=== PATIENT | male | born 1955 | race Caucasian/White ===

== ENCOUNTER 2016-10-11 19:23 | Emergency (ER) | payer OTHER ==
[~2016-10-11] VITALS: Ht 175.3 cm; Wt 77.7 kg
[2016-10-11 19:31] VITALS: BP 164/99; PULSE 80; RESP 16; O2SAT 100
[2016-10-11 20:18] LABS: BASOPHILS % (AUTO) 0.4 % (0-3)
[2016-10-11 20:37] LABS: Magnesium 2.4 mg/dL (1.6-2.6)
[2016-10-11 20:40] LABS: EOSINOPHILS % (AUTO) 2.2 % (0-5); MONOCYTES % (AUTO) 7.7 % (4-12); Mean Corpuscular Volume 81.7 fL (81-100); NEUTROPHILS % (AUTO) 72.1 % (40-74); Platelet Count 185 bil/L (150-400)
--- NOTE | 2016-10-11 21:10 | ED.REPORT ---
HPI-GI Bleed Date of Service Oct 11, 2016 ED Provider: Wilber Gómez MD A 60 year old male with a history of anxiety presents to the ED complaining of intermittent bloody stools that began approx. 6 months ago. Patient has been seen at [facility] for his symptoms and was told that he may be experiencing bacterial gastritis. During the initial episode, he reports abdominal pain, "heartburn", fatigue, flatulence and diarrhea. Patient reports one episode of white mucus around his stool earlier this week. Associated symptoms include fatigue, decreased appetite, and has been feeling "very anxious " lately. He also reports weight loss (5-6lbs) over the past 6 days. Patient has a colonoscopy scheduled for Thursday. He denies any diarrhea today. Nursing Notes Stated Complaint: BLOOD IN STOOLS Chief Complaint: Male Abdominal Pain Nursing Notes Reviewed: Yes Allergies: Coded Allergies: No Known Allergies (Unverified , 10/11/16) General Time Seen by Provider: 21:11 Chief Complaint Chief Complaint: Stool blood streaked Hx Obtained From: Patient Arrived By: Walk-in Onset Occurred: More than a week ago... (6 months) Symptom Duration: Since onset Progression Since Onset: Intermittent Location: : Abdomen lower Quality: Painful Radiation: : Does not radiate Severity: Current: No pain currently Severity: Maximum: Moderate Associated with: Reports: Abdominal pain, Chest pain, Diarrhea Pertinent Negative: Pt denies other symptoms Recent Healthcare: No recent hospitalization, Recent doctor visit Risk-GI Bleed Bleeding Risk Stratification RF Statements: Risk factors reviewed Past Medical History Past Medical History Anxiety Hypertension Past Surgical History Colonoscopy Smoking History Unknown if Ever Smoker Social History Other Social History: Good social support, , Lives in custodial, Local resident Ambulatory Status Independent Review of Systems decreased appetite Constitutional: Reports: Recent wt loss (5-6 lbs in the past 6 days ), Denies: Chills, Fever Respiratory: Denies: Shortness of breath Cardiovascular: Reports: Chest pain (During one episode ) GI: Reports: Abdominal pain (During the initial episode of pain ), Bloody/ tarry stool, Constipation, Diarrhea, Mucousy stool Neurologic: Denies: Change LOC Complete sys rev & neg: except as marked. Psychiatric: Reports: Anxiety Physical Exam Initial Vital Signs Vital Signs (First) Date Time Temp Pulse Resp B/P Pulse Ox O2 Delivery O2 Flow Rate FiO2 10/11/16 19:31 36.4 80 16 164/99 100 Room Air Initial VS: Reviewed, Vital signs abnormal Head / Eyes: Atraumatic, Normocephalic, PERRL Extremities: Vascular intact, Neuro intact, No swelling, No tenderness Skin: Warm, Dry, No cyanosis Neurologic: Alert, Oriented, Nonfocal Psychiatric: Mood/affect normal, Behavior normal, Normal thought content General/Constitutional: Awake, Alert Behavior: Positive: Anxious Respiratory / Chest: Atraumatic, Breath sounds NL, Breath sounds = bilat, No respiratory distress Cardiovascular: Heart rate NL, Regular rhythm, Heart sounds NL Abdomen: Atraumatic, Soft, Non-tender RECTUM: Not indicated Interpretation & Diagnostics Lab Results Interpretation Result Diagram: 10/11/16200410/11/162004 Test 10/11/16 20:04 10/11/16 20:05 Hold Urine Received (Received) White Blood Count 5.6th/mm3 (3.8-10.1) Red Blood Count 5.67mil/mm3 (4.40-5.80) Hemoglobin 17.0g/dL (13.8-17.2) Hematocrit 46.3% (41.0-50.0) Mean Corpuscular Volume 81.7fL (81-100) Mean Corpuscular Hemoglobin 30.0pg (27.0-35.0) Mean Corpuscular Hemoglobin Concent 36.7% (32.0-37.0) Red Cell Distribution Width 12.4% (12.3-15.4) Platelet Count 185bil/L (150-400) Neutrophils (%) (Auto) 72.1% (40-74) Lymphocytes (%) (Auto) 17.4% (14-46) Monocytes (%) (Auto) 7.7% (4-12) Eosinophils (%) (Auto) 2.2% (0-5) Basophils (%) (Auto) 0.4% (0-3) Sodium Level 137mEq/L (134-144) Potassium Level 4.2mEq/L (3.5-5.2) Chloride Level 99mEq/L (97-108) Carbon Dioxide Level 24mmol/L (18-29) Blood Urea Nitrogen 11mg/dL (6-24) Creatinine 0.80mg/dL (0.76-1.27) Estimat Glomerular Filtration Rate 105mL/min (>59) Glucose Level 169mg/dL (60-99) Calcium Level 9.8mg/dL (8.5-10.1) Magnesium Level 2.4mg/dL (1.6-2.6) Total Bilirubin 1.1mg/dL (0.0-1.2) Aspartate Amino Transf (AST/SGOT) 27U/L (0-50) Alanine Aminotransferase (ALT/SGPT) 20U/L (0-44) Alkaline Phosphatase 60U/L (25-160) Total Protein 7.8g/dL (6.4-8.4) Albumin 4.9g/dL (3.4-5.0) Hold Reis Top Tube Received (Received) Lab values outside NL range: no clinical significance. Lab Results Interpretation: Elevated nonfasting blood glucose. No anemia Re-Eval/Medical Decision Med Decision/Clinical Course 60-year-old male who has had several months now of intermittent blood in his stool. There is sometimes mucus and diarrhea but not consistently. He is in the process of being evaluated and has a colonoscopy scheduled in 2 days. He is very anxious about this and wants to make sure that he is not anemic. Laboratory is normal. Stool antigen testing is ordered but he is unable to give us a stool sample at this time. He will continue his bowel prep and get his colonoscopy and follow-up with his GI doctor concerning this matter. Re-Evaluation/Progress : Time of Eval: 21:32 Patient Status: Condition improved Re-Evaluation/Progress Note: Patient is rechecked. He is informed of his lab results. All of the patient's questions about his blood work are adressed. Patient is reassured that he is not anemic. He understands and agrees with the treatment plan to discharge. Counseled Regarding: Diagnosis, Lab results, Need for follow-up, When/why to return to ED Discharge & Departure Impression: Primary Impression: Rectal bleeding Disposition: Home Discharge Condition All VS Reviewed: Yes Condition: Improved Patient Instructions: Gastrointestinal Bleeding (ED) Additional Instructions: Your labs today are all normal with the exception of mildly elevated nonfasting blood sugar. Collect a stool sample and return it to the lab for PCR testing. Continue your bowel prep and gets her colonoscopy as scheduled. There is no evidence right now of anemia, liver or kidney disease, or other serious situation with the lab testing. Referrals: Benoit Schumacher DO (PCP) Pelon Attestation Portions of this note were transcribed by Jamison Man. I, Dr. Gómez personally performed the history, physical exam and medical decision-making; I reviewed and confirmed the accuracy of the information in the transcribed note. Signed by: Pelon Jacinto, 10/11/16 0080. copies to: Benoit Schumacher Howard L MD Oct 11, 2016 21:10 JAMISON MAN Oct 11, 2016 21:18
[2016-10-11 21:41] VITALS: BP 160/95; PULSE 67; O2SAT 98
[2016-10-11 22:08] VITALS: BP 160/95; PULSE 67; RESP 16; O2SAT 98
== END 2016-10-11 22:09 | disposition home or self-care (01) ==
LOC: SED 19:23
DX: K62.5 Hemorrhage of anus and rectum (principal); R53.83 Other fatigue; R63.0 Anorexia; F41.9 Anxiety disorder, unspecified; I10 Essential (primary) hypertension

== ENCOUNTER 2016-11-06 12:35 | Emergency (ER) | payer OTHER ==
[~2016-11-06] VITALS: Ht 175.3 cm; Wt 79.1 kg
--- NOTE | 2016-11-06 12:38 | ED.REPORT ---
HPI-Dyspnea / Wheezing Date of Service Nov 06, 2016 ED Provider: Dr. Soham Varma The patient is a 60 year old male with history of hypertension and anxiety, who presents to the emergency department complaining of shortness of breath that began yesterday. He was seen by medics yesterday but decided to not go to the hospital at that time. His breathing became more severe this morning. Around September 20 the patient started feeling unwell. The patient initially noticed tingling in his leg and a few days later his legs "gave out" from under him. The leg weakness has continued since onset. He lost 6 pounds in about 1 week. He has also noticed cramping in his left calf and fasciculations. His symptoms do not improve when his anxiety does. He is concerned he has ALS and has an appointment with a neurologist at [facility] next week. He has no known family history of ALS. He denies fever, chills, cough, nasal congestion, abdominal pain, nausea, vomiting or diarrhea. Nursing Notes Stated Complaint: SOB Nursing Notes Reviewed: Yes Allergies: Coded Allergies: No Known Allergies (Unverified , 10/11/16) General Time Seen by MD: 12:37 Chief Complaint Shortness of breath Hx Obtained From: Patient, Spouse Arrived By: Walk-in Sudden in Onset?: No Onset Occurred: Yesterday Symptom Duration: Since onset Location: : None Severity: Current: No pain currently Severity: Maximum: No pain Recent Healthcare: No recent hospitalization, Recent doctor visit, Prior workup Similar Sx Previous: Yes Risk Factors Well's Criteria for PE Well's PE Score: 0-2 pts (low risk 3.6%) Well's Criteria for DVT Well's DVT Score: 0 pts (low risk 5%) Past Medical History Past Medical History Anxiety Hypertension Lumbar spine injury Past Surgical History Colonoscopy with polyp removal Lumbar surgery Family History Noncontributory Smoking History Never Smoker Social History Other Social History: Good social support, , Local resident Ambulatory Status Independent Review of Systems Review of Systems Note: +fasciculations Constitutional: Reports: Recent wt loss, Denies: Chills, Fever Ears / Nose / Throat: Denies: Nasal congestion Respiratory: Reports: Shortness of breath, Denies: Non-productive cough Musculoskeletal: Reports: Extremity pain (calf) Complete sys rev & neg: except as marked. GI: Denies: Abdominal pain, Diarrhea, Nausea, Vomiting Neurologic: Reports: Focal weakness, Numbness (tingling), Problem walking Psychiatric: Reports: Anxiety Physical Exam Initial Vital Signs Vital Signs (First) Date Time Temp Pulse Resp B/P Pulse Ox O2 Delivery O2 Flow Rate FiO2 11/06/16 12:40 36.7 71 12 135/91 98 Room Air Initial VS: Reviewed Head / Eyes: Atraumatic, Normocephalic, PERRL ENT: Mucous membranes moist, Conjunctiva normal, No scleral icterus Abdomen / GI: Soft, Non-tender, No guarding, No rebound, No distention Lymphatic: No lymphadenopathy Extremities: Vascular intact, No swelling Skin: Warm, Dry, No cyanosis Psychiatric: Mood/affect normal, Behavior normal, Normal thought content General/Constitutional: Awake, Alert Neck: Atraumatic, Supple, No meningismus, Full range of motion, No swelling, Non-tender, No masses Respiratory / Chest: Atraumatic, Breath sounds NL, Breath sounds = bilat, No respiratory distress, No rales, No rhonchi, No wheezing, No retractions, No stridor Cardiovascular: Heart rate NL, Regular rhythm, Heart sounds NL, No gallop, No murmurs, No rubs, Peripheral circulation NL Lower Extremity / Pelvis / MS: Neurologic intact, Vascular intact, No edema Neurologic: Oriented X3, Speech NL, No motor deficits, No sensory deficits, Cerebellar NL, Memory NL, Gait NL No fasciculations seen on exam. Reflexes: knees are 3+ symmetrically, ankles 1+ symmetrically, biceps tendon 1+ symmetrically. Interpretation & Diagnostics Lab Results Interpretation Result Diagram: 11/06/16 1325 11/06/16 1325 Test 11/06/16 13:25 White Blood Count 6.7th/mm3 (3.8-10.1) Red Blood Count 5.39mil/mm3 (4.40-5.80) Hemoglobin 16.4g/dL (13.8-17.2) Hematocrit 45.0% (41.0-50.0) Mean Corpuscular Volume 83.5fL (81-100) Mean Corpuscular Hemoglobin 30.4pg (27.0-35.0) Mean Corpuscular Hemoglobin Concent 36.4% (32.0-37.0) Red Cell Distribution Width 12.3% (12.3-15.4) Platelet Count 172bil/L (150-400) Neutrophils (%) (Auto) 79.3% (40-74) Lymphocytes (%) (Auto) 12.0% (14-46) Monocytes (%) (Auto) 5.3% (4-12) Eosinophils (%) (Auto) 2.9% (0-5) Basophils (%) (Auto) 0.3% (0-3) Sodium Level 142mEq/L (134-144) Potassium Level 4.2mEq/L (3.5-5.2) Chloride Level 101mEq/L (97-108) Carbon Dioxide Level 23mmol/L (18-29) Blood Urea Nitrogen 13mg/dL (6-24) Creatinine 0.66mg/dL (0.76-1.27) Estimat Glomerular Filtration Rate 131mL/min (>59) Glucose Level 106mg/dL (60-99) Calcium Level 9.5mg/dL (8.5-10.1) Total Bilirubin 1.1mg/dL (0.0-1.2) Aspartate Amino Transf (AST/SGOT) 21U/L (0-50) Alanine Aminotransferase (ALT/SGPT) 23U/L (0-44) Alkaline Phosphatase 73U/L (25-160) Total Protein 7.1g/dL (6.4-8.4) Albumin 4.6g/dL (3.4-5.0) Thyroid Stimulating Hormone (TSH) 5.640uIU/mL (0.450-4.500) Hold Reis Top Tube Received (Received) General Lab Results Interp 1: Labs reviewed ECG Interpretation ECG Interpretation: Sinus rhythm with a rate of 68 Time: 13:39 Interpreted by: ED physician X-Ray Chest Interpretation Chest Xray Interpretation: IMPRESSION: Negative chest. No acute cardiopulmonary process is evident. Dictated by: Addison Lucero M.D. on 11/06/2016 at 12:44 View: AP & lat Interpretation / Wet Read by: Interpret - Radiologist Re-Eval/Medical Decision Med Decision/Clinical Course I had a very lengthy discussion with this gentleman regarding his concerns about ALS. He does endorse muscle fasciculations and exceeding fatigue and some difficulty with breathing. He is concerned about hyperreflexia but in fact has what seems to me to be normal reflexive symmetric reflexes at the biceps, patella and Achilles. He is obviously exceedingly anxious about the possibility of ALS as a diagnosis. His elcnds-si-sam of it. I reassured him that in the off chance that his symptoms may be related to same the idea that he would be in any jeopardy in the coming hours or days is exceedingly low. He has an appointment with a neurologist at [facility] next week for evaluation for this problem. I did discover today some degree of hypothyroidism and recommended outpatient workup for that. I recommended lorazepam as needed sparingly 1 or 2 or 3 days in a row or 4-6 days in a month but warned him explicitly about the high risk of addiction of this medication and the extreme danger and concomitant use with alcohol. Source of Hx: Old records, Family Re-Evaluation/Progress : Time of Eval: 14:26 Re-Evaluation/Progress Note: Updated patient. Discussed plan for discharge and follow up. All questions addressed. Counseled Regarding: Diagnosis, Lab results Discharge & Departure Impression: Primary Impression: Dyspnea Dyspnea type: dyspnea on exertion Qualified Code: R06.09 - Other forms of dyspnea Additional Impressions: Fasciculations of muscle Hypothyroid Hypothyroidism type: unspecified Qualified Code: E03.9 - Hypothyroidism, unspecified Disposition: Home Discharge Condition All VS Reviewed: Yes Condition: Stable Patient Instructions: Hypothyroidism (DC) Additional Instructions: Thank you for entrusting us with your care today. Your exam findings, chest x- ray, EKG, and labs today are reassuring. There is no evidence of anything immediately dangerous at this time. Keep your appointment with the neurologist next week. You should also followup with your regular doctor next week for re- evaluation, I will call you with an appointment time. Seek care sooner for any new or concerning symptoms. Use lorazepam sparingly as needed for severe anxiety symptoms. If he take lorazepam, you cannot use alcohol concurrently. Referrals: Benoit Schumacher DO (PCP) Pelon Attestation Portions of this note were transcribed by Ysabel Chew. I, Dr. Varma personally performed the history, physical exam and medical decision-making; I reviewed and confirmed the accuracy of the information in the transcribed note. Signed by: Pelon John, 11/06/2016 at 1500. copies to: Benoit Schumacher Kirk H MD Nov 06, 2016 12:38 Ysabel Chew Nov 06, 2016 12:45 Heather Carter Nov 06, 2016 14:26
[2016-11-06 12:40] VITALS: BP 135/91; PULSE 71; RESP 12; O2SAT 98
[2016-11-06 13:33] LABS: BASOPHILS % (AUTO) 0.3 % (0-3); EOSINOPHILS % (AUTO) 2.9 % (0-5); MONOCYTES % (AUTO) 5.3 % (4-12); Mean Corpuscular Hemoglobin 30.4 pg (27.0-35.0); Mean Corpuscular Volume 83.5 fL (81-100); NEUTROPHILS % (AUTO) 79.3 % (40-74); Platelet Count 172 bil/L (150-400)
--- NOTE | 2016-11-06 13:46 | DRSVH ---
PROCEDURE: X-RAY CHEST, TWO VIEWS ([id number]) INDICATIONS: DYSPNEA TECHNIQUE: 2 views of the chest were acquired. COMPARISON: None. FINDINGS: Surgical changes and devices: None. Lungs and pleura: No pleural effusions or pneumothorax. Lungs are clear. Mediastinum: Mediastinal contours are normal. Heart size is normal. Bones and chest wall: No suspicious bony abnormalities. Soft tissues appear unremarkable. IMPRESSION: Negative chest. No acute cardiopulmonary process is evident. Dictated by: Addison Lucero M.D. on 11/06/2016 at 12:44 Approved by: Addison Lucero M.D. on 11/06/2016 at 12:44
== END 2016-11-06 15:08 | disposition home or self-care (01) ==
LOC: SED 12:35
DX: R06.09 Other forms of dyspnea (principal); R25.3 Fasciculation; E03.9 Hypothyroidism, unspecified; I10 Essential (primary) hypertension

== ENCOUNTER 2016-11-08 11:31 | Emergency (ER) | payer OTHER ==
[2016-11-08 11:32] VITALS: BP 151/102; PULSE 81; RESP 15; O2SAT 99
--- NOTE | 2016-11-08 11:47 | ED.REPORT ---
HPI-Dyspnea / Wheezing Date of Service Nov 08, 2016 ED Provider: Soham Varma MD A 60 year old male with a history of anxiety and hypertension presents to the ED complaining of an inability to take a deep breath. He is also complaining of right finger twitching that began last night. The pt suspects that his symptoms are due to ALS and has a neurology appointment in three days. He was seen in the ED two days ago for similar symptoms. Since this point his breathing has not improved, but he has not been taking the Ativan that was prescribed. The pt is requesting a BiPAP machine to treat his suspected ALS. Nursing Notes Stated Complaint: BREATHING ISSUES Chief Complaint: Respiratory Complaints Nursing Notes Reviewed: Yes Allergies: Coded Allergies: No Known Allergies (Unverified , 11/08/16) General Time Seen by MD: 11:45 Chief Complaint Other (Difficulty getting deep breath) Hx Obtained From: Patient Arrived By: Walk-in Sudden in Onset?: No Onset Occurred: 3 days ago Symptom Duration: Since onset Recent Healthcare: No recent hospitalization, Recent doctor visit Similar Sx Previous: Yes Past Medical History Past Medical History Anxiety Hypertension Lumbar spine injury Past Surgical History Colonoscopy with polyp removal Lumbar surgery Family History Noncontributory Smoking History Never Smoker Social History Other Social History: Good social support, , Local resident Ambulatory Status Independent Review of Systems Review of Systems Note: difficulty taking a deep breath twitching fingers Constitutional: Denies: Fever Respiratory: Denies: Non-productive cough Cardiovascular: Denies: Chest pain Musculoskeletal: Denies: Back pain, Neck pain Skin: Denies Rash Complete sys rev & neg: except as marked. Physical Exam Initial Vital Signs Vital Signs (First) Date Time Temp Pulse Resp B/P Pulse Ox O2 Delivery O2 Flow Rate FiO2 11/08/16 11:32 36.5 81 15 151/102 99 Room Air Initial VS: Reviewed General/Constitutional: Awake, Alert Neck: Atraumatic, Supple, Full range of motion Respiratory / Chest: Atraumatic, Breath sounds NL, Breath sounds = bilat, No respiratory distress NIF test normal Cardiovascular: Heart rate NL, Regular rhythm, Heart sounds NL ENT: Atraumatic, Airway patent, Mucous membranes moist Abdomen: Atraumatic, Soft, Non-tender Back: Atraumatic, Full range of motion Lower Extremity / Pelvis / MS: Atraumatic, Full range of motion Skin: Atraumatic, Color NL, No rash, Warm, Dry Neurologic: Oriented X3, Speech NL, No motor deficits, No sensory deficits Head / Eyes: Atraumatic, Normocephalic, PERRL, EOMI Upper Extremity / MS: Atraumatic, Full range of motion Psychiatric: Affect NL Abnormal Mood/Affect: Positive: Anxious Interpretation & Diagnostics Lab Results Interpretation Test 11/08/16 12:10 Hold Purple Top Tube Received (Received) D-Dimer < 0.50mg/L FEU (<0.50) Hold Red Top Tube Received (Received) Hold [place] Top Tube Received (Received) Hold Reis Top Tube Received (Received) Re-Eval/Medical Decision Med Decision/Clinical Course Negative inspiratory force is greater than 40 as assessed by respiratory therapy. Source of Hx: Old records Re-Evaluation/Progress : Time of Eval: 13:37 Patient Status: Condition improved Re-Evaluation/Progress Note: Pt rechecked, who is stable. The diagnosis and plan for discharge are discussed. The pt understands and agrees with the plan. All questions are addressed at this time. Consultation : Call Returned at: 13:32 Note: Spoke with respiratory therapy regarding normal NIF test results. Counseled Regarding: Diagnosis, Lab results, Need for follow-up, When/why to return to ED Discharge & Departure Impression: Primary Impression: Dyspnea Dyspnea type: unspecified Qualified Code: R06.00 - Dyspnea, unspecified Disposition: Home Discharge Condition All VS Reviewed: Yes Condition: Stable Additional Instructions: No new dangerous cause for your symptoms of breathlessness is discovered. I think that control of your breathing by holding her breath in exhalation may be helpful. I also encourage you to use the lorazepam as prescribed the other day as I feel this is safe to try and likely to help. Otherwise follow up as planned. I specifically do not believe that oxygen or BiPAP will be beneficial in this specific instance. Referrals: Benoit Schumacher DO (PCP) Edwardoibraymon Attestation Portions of this note were transcribed by Casey Mirza. I, Dr. Varma personally performed the history, physical exam and medical decision-making; I reviewed and confirmed the accuracy of the information in the transcribed note. Signed by: Pelon Akins, 11/08/16 and [id number]. copies to: Benoit Schumacher Kirk H MD Nov 08, 2016 11:47 CASEY MIRZA Nov 08, 2016 12:32
[2016-11-08 14:09] VITALS: BP 143/99; PULSE 74; RESP 15; O2SAT 99
[2016-11-08 14:13] VITALS: BP 143/99; PULSE 74; RESP 15; O2SAT 99
== END 2016-11-08 14:13 | disposition home or self-care (01) ==
LOC: SED 11:31
DX: R06.00 Dyspnea, unspecified (principal); I10 Essential (primary) hypertension